=== PATIENT | female | born 1960 | race Caucasian/White ===

== ENCOUNTER 2018-09-12 08:54 | Emergency (ER) | payer OTHER ==
[~2018-09-12] VITALS: Ht 170.2 cm; Wt 127.0 kg
[~2018-09-12 08:54] MED LIST: CEPH500 PO; SULTRIDS PO
[2018-09-12] MEDS ORDERED: ATOR10 PO (09:11)
[2018-09-12] MEDS ORDERED: SERT100 PO (09:12)
[2018-09-12] MEDS ORDERED: ESOM20 PO (09:12)
[2018-09-12] MEDS ORDERED: LEVO-T50 MCG PO (09:13)
[2018-09-12] MEDS ORDERED: MONT10T PO (09:13)
[2018-09-12] MEDS ORDERED: FLUT1DIS5 INH (09:13)
[2018-09-12] MEDS ORDERED: ASPI325 PO (09:14)
[2018-09-12] MEDS ORDERED: Aspirin EC81 MG PO (09:15)
[2018-09-12] MEDS ORDERED: Norco 5-325 Ta1 EACH PO (09:52)
[2018-09-12] MEDS ORDERED: CYCL10 PO (09:52)
[2018-09-12] MEDS ORDERED: IBUP600 PO (09:52)
== END 2018-09-12 11:05 | disposition home or self-care (01) ==
LOC: ER 08:54
DX: M54.5 Low back pain (principal); Z79.899 Other long term (current) drug therapy; Z79.82 Long term (current) use of aspirin
CPT/HCPCS: 96374; 99283-25; A9270-GY; J1885

== ENCOUNTER 2020-09-23 09:32 | Day surgery (SDC) | payer OTHER ==
[~2020-09-23] VITALS: Ht 167.6 cm; Wt 123.2 kg
[~2020-09-23 09:32] MED LIST changes: +ASPI325 PO; +ASPIR 8181 MG PO; +ATOR10 PO; +ATOR20 PO; +Aspirin EC81 MG PO; +CYCL10 PO; +ESOM20 PO; +EUTHYROX50 MCG PO; +FLUT1DIS5 INH; +IBUP600 PO; +LEVO-T50 MCG PO; +MONT10T PO; +Nexium40 MG PO; +Norco 5-325 Ta1 EACH PO; +SERT100 PO
[2020-09-23] MEDS ORDERED: FLUT1DIS5 (10:09)
== END 2020-09-23 11:25 | disposition home or self-care (01) ==
LOC: ORSCSDS 09:32
PROVIDERS: Surgery
PROC: 0DJD8ZZ Inspection of Lower Intestinal Tract, Via Natural or Artificial Opening Endoscopic (ICD-10-PCS; principal; 2020-09-23 10:45)
DX: Z12.11 Encounter for screening for malignant neoplasm of colon (principal); K57.30 Diverticulosis of large intestine without perforation or abscess without bleeding; E03.9 Hypothyroidism, unspecified; E78.00 Pure hypercholesterolemia, unspecified; K21.9 Gastro-esophageal reflux disease without esophagitis; F32.9 Major depressive disorder, single episode, unspecified; J45.909 Unspecified asthma, uncomplicated; E66.01 Morbid (severe) obesity due to excess calories; Z68.41 Body mass index [BMI] 40.0-44.9, adult; Z79.899 Other long term (current) drug therapy
CPT/HCPCS: 82947; J2704; J7120